=== PATIENT | female | born 1960 | race Caucasian/White ===

== ENCOUNTER 2018-01-04 09:43 | Outpatient (CLI) | payer OTHER ==
--- NOTE | 2018-01-04 12:15 | ULT ---
LIMITED RIGHT BREAST ULTRASOUND: DATE: 01/04/2018. PROVIDED CLINICAL HISTORY: Right breast palpable abnormality. FINDINGS: Limited sonographic interrogation of the right breast is performed in the region of palpable concern. The sonographic appearance of the breast parenchyma in this region is normal. IMPRESSION: BIRADS category 1 - negative. No mammographic or sonographic abnormalities are evident in the regio n of palpable concern. Negative imaging findings should not preclude further evaluation of a clinica lly suspicious area. The patient is referred back to her clinician. POS: OFF
== END 2018-01-04 09:44 | disposition home or self-care (01) ==
LOC: BICMAMMO 09:43
PROVIDERS: ATTEND Family Medicine
DX: N63.10 Unspecified lump in the right breast, unspecified quadrant (principal)
CPT/HCPCS: 77066; G0279